=== PATIENT | male | born 1955 | race Caucasian/White ===

== ENCOUNTER 2022-11-29 12:29 | Emergency (ER) | payer OTHER ==
[~2022-11-29] VITALS: Ht 172.7 cm; Wt 77.6 kg
[2022-11-29] MEDS ORDERED: ACETAMINOPHEN 325 MG TABLET PO ONE (15:00)
[2022-11-29] MEDS ORDERED: ACETAMINOPHEN ES 500 MG TABLET ONE (15:25)
[2022-11-29] MEDS ORDERED: IBUP-1955 PO (16:11)
[2022-11-29] MEDS ORDERED: METH-649 PO (16:11)
[2022-11-29 18:32] VITALS: BP 182/98; TEMP 98.7; O2SAT 99
== END 2022-11-29 18:32 | disposition home or self-care (01) ==
LOC: ER 12:40
DX: M25.511 Pain in right shoulder (principal); W01.0XXA Fall on same level from slipping, tripping and stumbling without subsequent striking against object, initial encounter; Y93.89 Activity, other specified; Y92.89 Other specified places as the place of occurrence of the external cause; Y99.8 Other external cause status
CPT/HCPCS: 73030-TC